=== PATIENT | male | born 1955 | race Caucasian/White ===

== ENCOUNTER → 2020-03-23 07:59 | Outpatient (CLI) | payer OTHER, SELFPAY ==
--- NOTE | ~2020-03-23 | CT_ITS ---
EXAMINATION: CT abdomen wo/w con INDICATION: Right renal mass status post renal ablation TECHNIQUE: Computed tomographic images of the abdomen were obtained prior to and following the admini stration of 100 cc of Omnipaque 350 intravenous contrast. The dose-length product (DLP) was 1362.11 m Gy-cm. Automated exposure control and iterative reconstruction technique were employed. COMPARISON: 11/12/2018 FINDINGS: Minimal dependent atelectasis is present in the lung bases. The heart size is normal. Areas of subendocardial fat deposition in the left ventricle are consistent with prior myocardial infarcti on. The gallbladder and left kidney are surgically absent. The liver, spleen, pancreas, and adrenal g lands are normal. Chronic and stable cryoablation changes are noted in the posterior aspect of the ri ght kidney. No residual or recurrent neoplasm is identified. Cysts of the right kidney measure up to 11 mm. There is a stable infrarenal abdominal aortic aneurysm status post bifurcated endoluminal aort ic stent graft repair. There are no pathologically enlarged abdominal lymph nodes. There are bridging osteophytes at multiple levels in the lower thoracic spine, consistent with diffuse idiopathic skele torsten hyperostosis (DISH). IMPRESSION: 1. Stable changes of renal ablation without residual or recurrent neoplasm identified. Reviewed, dictated and finalized at location A. IMPRESSION: 1. Stable changes of renal ablation without residual or recurrent neoplasm iden tified.
[2020-03-23 08:34] LABS: Estimated Glomerular Filt Rate 38
== END ==
PROVIDERS: PCP Family Medicine
DX: N28.89 Other specified disorders of kidney and ureter (principal)
CPT/HCPCS: 36415; 74170; Q9967

== ENCOUNTER → 2020-09-18 13:47 | Outpatient (CLI) | payer OTHER, SELFPAY ==
--- NOTE | ~2020-09-18 | XR_ITS ---
EXAMINATION: XR shoulder LT min 2V DATE: 09/18/2020 14:08 INDICATION: Left shoulder pain. TECHNIQUE: 4 views of left shoulder were obtained. COMPARISON: Left shoulder radiographs 04/30/2011 FINDINGS: Bone alignment is normal. No fracture. There is mild osteoarthritis of glenohumeral joint a nd acromioclavicular joint. Median sternotomy wires and mediastinal surgical clips are seen, likely f rom prior coronary artery bypass grafting. IMPRESSION: 1. Mild polyarticular osteoarthritis. Reviewed, dictated and finalized at location A. [employer] CLERK
== END ==
PROVIDERS: PCP Family Medicine; Visit Provider Nurse Practitioner Family
DX: M19.012 Primary osteoarthritis, left shoulder (principal)
CPT/HCPCS: 73030

== ENCOUNTER → 2020-11-02 08:39 | Outpatient (CLI) | payer OTHER, SELFPAY ==
--- NOTE | ~2020-11-02 | XR_ITS ---
EXAMINATION: XR abdomen/kub 1V EXAM DATE: 11/02/2020 09:44 INDICATION: Microscopic hematuria. TECHNIQUE: Frontal projection(s) of the abdomen for interpretation. There is no prior study for zully simmons. FINDINGS: There is expected amount of colonic stool and gas. No small bowel dilation, nonobstructiv e bowel gas pattern. There are no suspicious calcifications identified. There is no organomegaly suspected. There are bony degenerative changes. Cholecystectomy, left nephrectomy clips. Aortobii liac endograft. Left-sided abdominal wall mesh. IMPRESSION: Unremarkable abdomen x-ray exam. Reviewed, dictated and finalized at location A.
--- NOTE | ~2020-11-02 | CT_ITS ---
EXAMINATION: CT abdomen pelvis wo/w con EXAM DATE: 11/02/2020 09:50 INDICATION: Microscopic hematuria, RT groin pain. Renal mass status post ablation. TECHNIQUE: Spiral CT of the abdomen and pelvis was performed without contrast. The patient was then injected with small bolus intravenous Omnipaque 350, followed by delay of approximately 10 minutes to allow collecting system to opacify. A post contrast scan abdomen and pelvis was performed during inj ection of remaining contrast. A total of 130 cc intravenous contrast was administered. The dose-michael th product (DLP) for this examination was 2439.57 mGy-cm. The exposure was tailored according to pat ient size (auto mA exposure control), and iterative reconstruction (ASIR) was used as additional dose reduction technique. Comparison is made to prior examination from 03/23/2020. FINDINGS: Status post left-sided nephrectomy. Small region of right renal cortical scarring, less wel l appreciated, was the site of a prior ablated renal mass. No evidence of recurrence. No right nephro lithiasis. The calyces and opacified portions of right ureter are unremarkable, without filling defec ts or focal suspicious strictures. The bladder is unremarkable. The prostate is unremarkable. Small bilateral inguinal fat-containing hernias. Large right scrotal hydrocele. The liver, spleen, adrenal glands and pancreas are unremarkable. There are cholecystectomy clips. T here is no retroperitoneal or pelvic lymphadenopathy. There is aortobiiliac endograft. Left-sided l arge abdominal wall mesh. The appendix is not positively visualized. There is no pericecal inflammatory change to suggest appe ndicitis. There is mild scattered colonic diverticulosis. There is no adjacent inflammatory change t o suggest diverticulitis. The stomach and small bowel are unremarkable. There is expected amount of colonic stool. No free intraperitoneal gas. The heart is normal in size. There are no pericardia l or pleural effusions. Sternotomy wires. Elevated left hemidiaphragm. There are no osteoblastic or osteolytic lesions identified. IMPRESSION: 1. Stable left nephrectomy and right cryoablation sites. 2. Mild colonic diverticulosis. 3. Large right hydrocele. 4. Surgical changes. Reviewed, dictated and finalized at location A.
[2020-11-02 09:07] LABS: Estimated Glomerular Filt Rate 34
== END ==
PROVIDERS: PCP Family Medicine; Visit Provider Nurse Practitioner Adult Health
DX: R31.29 Other microscopic hematuria (principal); K57.30 Diverticulosis of large intestine without perforation or abscess without bleeding; N43.3 Hydrocele, unspecified
CPT/HCPCS: 74018; 74178; Q9967